=== PATIENT | female | born 1955 | race Caucasian/White ===

== ENCOUNTER 2020-03-14 09:24 | Outpatient (CLI) | payer OTHER ==
[2020-03-14] MEDS ORDERED: GADOTERATE 10 MMOL/20 ML VIAL ONE (13:27)
== END 2020-03-14 23:59 | disposition home or self-care (01) ==
LOC: RAD 09:24
PROVIDERS: ATTEND Radiology Diagnostic Radiology
DX: R59.1 Generalized enlarged lymph nodes (principal); I87.1 Compression of vein; M51.36 Other intervertebral disc degeneration, lumbar region
CPT/HCPCS: 72197; 74183; A9575